=== PATIENT | male | born 1945 | race Caucasian/White ===

== ENCOUNTER 2021-08-04 11:02 | Day surgery (SDC) | payer MEDICARE, BC, SELFPAY ==
[2021-08-04 12:10] VITALS: BP 110/62; PULSE 70; RESP 16; TEMP 36.4; O2SAT 99
[2021-08-04] MEDS: Tropicam./Phenyleph. (1/2.5%) 5 ML BTL OS ×3 (12:22→12:32)
--- NOTE | 2021-08-04 12:45 | ANES.PREOP_ITS ---
General Info Date of Service Date Performed: 08/04/21 Height: 5 ft 9 in Weight: 71.8 kg Body Mass Index (BMI): 23.3 Surgical Procedure: Operation Date: 08/04/21 14:40 Proposed Procedures Side Surgeon p Cataract Extraction with IOL Implant Left Colin River MD Meds Allergies and Home Medications Allergies Allergy/AdvReac Type Severity Reaction Status Date / Time adhesive Allergy Mild Skin Rash Verified 08/04/21 12:03 latex Allergy Mild Skin Rash Verified 08/04/21 12:03 doxycycline Allergy Verified 08/04/21 12:03 isosorbide Allergy Nausea Verified 08/04/21 12:03 lisinopril Allergy Verified 08/04/21 12:03 Home Medication Medication Instructions Recorded amiodarone [Pacerone] 200 mg PO DAILY tab-cap NS 08/31/16 atorvastatin 40 mg PO DAILY tab-cap NS 08/31/16 ferrous sulfate 324 mg PO DAILY NS 08/31/16 magnesium oxide 400 mg PO DAILY NS 08/31/16 metoprolol succinate 200 mg PO DAILY tab-cap NS 08/31/16 nitroglycerin [Nitrostat] 0.3 mg SUBLINGUAL ONCE tab-cap NS 08/31/16 pantoprazole 40 mg PO DAILY tab-cap NS 08/31/16 ascorbic acid (vitamin C) 1,000 mg PO DAILY 08/02/21 furosemide 40 mg PO BID 08/02/21 mexiletine 150 mg PO BID 08/02/21 multivitamin 1 tab PO DAILY 08/02/21 spironolactone 12.5 mg PO DAILY 08/02/21 Current Visit Medications: Current Medications Generic Name Dose Route Start Last Admin Trade Name Freq PRN Reason Stop Dose Admin Acetaminophen 1,000 mg 08/04/21 06:00 Acetaminophen 500 Mg Tab PO Q4H PRN PRN Miscellaneous Medication 0 ml 08/04/21 06:00 Prednisolone 1%, Moxifloxacin 0.5%, Nepafenac 0.1% 5ml Btl OS DIRECTED MARCEL Miscellaneous Medication 0 ml 08/04/21 06:00 08/04/21 12:32 Tropicam./Phenyleph. (1/2.5%) 5 Ml Btl OS 1 drp DIRECTED MARCEL Administration Tetracaine HCl 0 ml 08/04/21 06:00 Tetracaine 0.5% 4 Ml Btl OS DIRECTED MARCEL [facility] Medical History Medical History A-fib Bilateral cataracts CAD (coronary artery disease) Cardiac defibrillator in situ CHF (congestive heart failure) HLD (hyperlipidemia) HTN (hypertension) Hx of lower gastrointestinal bleeding Hypercholesteremia Ischemic cardiomyopathy Pacemaker Medtronic Evera MRI XT DR Ventricular tachycardia, sustained monomorphic [place] [facility] [place] impant 12/2015 for rapid [place] Medical History Comments:: Pacemaker/Defibrillator in place Surgical History Surgical History (Updated 08/04/21 @ 12:02 by Maninder Hale) EGD - MAC (09/13/16) Hx of appendectomy Hx of tonsillectomy 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 Tobacco Smoking/Tobacco Use Status: Former Tobacco Use Alcohol Alcohol Intake: never Substance Use Substance use: Never Substance use type: does not use Vital Signs and Lab Results Vital Signs Most Recent Vital Signs in EMR: Most Recent Vital Signs Temp Pulse Resp BP Pulse Ox 36.4 C L 70 16 110/62 99 08/04/21 12:10 08/04/21 12:10 08/04/21 12:10 08/04/21 12:10 08/04/21 12:10 Lab Results Blood Type / Crossmatch: No Data to Display Complete Blood Count: No Data to Display Complete Metabolic Panel: No Data to Display Liver Function Panel: No Data to Display Coagulation Panel: No Data to Display Cardiac Panel: No Data to Display Arterial Blood Gas: No Data to Display Venous Blood Gas: No Data to Display Pancreas Panel: No Data to Display Thyroid Panel: No Data to Display Infectious Disease: No Data to Display Blood Cultures: No Data to Display Toxicology Panel: No Data to Display Imaging and Studies Imaging and Studies Study information below may be from another EMR and interpreted by another provider. Please see original notes in EMR for more complete details. Echocardiogram Summary: [place] [facility] 26%, Moderate to severe MR, Severe TR. New echo was ordered after placement of CAP SEWER-D device. Pulmonary Function Summary: 05[place]17/2020[place] [facility] Spirometry, Mild reduction in diffusion capacity. Normal SpO2. Anesthesia Assessment and Plan Anesthesia History Personal History: No History of Anesthesia Complications Family History: No Family History of Anesthesia Complications Exercise Tolerance Exercise Tolerance: Metabolic Equivalents>4 Pertinent Negatives Pertinent Negatives: No Symptoms of GERD Cardiac & Pulmonary Exam Cardiac Exam: Normal S1/S2 Heart Sounds Pulmonary Exam: Clear Bilateral Breath Sounds Implantable Cardiac Device Does patient have a Pacemaker or an ICD?: Yes Device Gis Mapping Technician:: Colibrí [id number] Reason for Placement:: S/P CABG, Hx VT. Date of Last Device Interrog ation:: May 2021. Airway Exam Known Difficult Airway: No Mallampati Class: 1 Mouth Opening: Normal (> 3cm) Thyromental Distance: Greater than 3 cm Neck Range of Motion: Full ROM Neck Circumference: Normal Teeth Condition: Removable Dentures/Plates Upper and Removable Dentures/Plates Lower ASA Classification ASA Score: ASA 3 Emergency Case?: No NPO Status NPO Status: NPO Clears >2 hours, Solids >8 hours Anesthesia Plan Resuscitation Status: Full Code Anesthesia Technique: MAC Anesthesia Airway Planned: Natural Airway Monitors Used: Standard Monitors
[2021-08-04 12:49] VITALS: BMI 23.3
[2021-08-04] MEDS: Tetracaine 0.5% 4 ML BTL OS (13:32)
[2021-08-04] MEDS: Balanced Salt Soln.-PLUS 500 ML BAG (13:33)
[2021-08-04] MEDS: Duovisc Viscoelastic System EACH 1 EACH (13:33)
[2021-08-04] MEDS: Lidocaine 2% Jelly 6 ML SYR (13:34)
[2021-08-04] MEDS: Povidone-Iodine Ophth 30 ML BTL (13:36)
[2021-08-04 13:50] VITALS: BP 123/70; PULSE 72; RESP 18; TEMP 36.8; O2SAT 99
--- NOTE | 2021-08-04 13:50 | PDOC.DSDIS_ITS ---
Discharge Plan Disposition Patient Disposition: HOME Condition: Good Discharge Details Attending Provider: Colin River Primary Care Provider: Elizabeth Vieira [place] Meds and New Rx's Prescriptions: No Action atorvastatin 40 MG tablet 40 mg PO DAILY RF: 0 nitroglycerin [Nitrostat] 0.3 MG tablet, sublingual 0.3 mg Sublingual ONCE RF: 0 pantoprazole 40 MG tablet,delayed release (DR/EC) 40 mg PO DAILY RF: 0 amiodarone [Pacerone] 200 MG tablet 200 mg PO DAILY RF: 0 metoprolol succinate 200 MG tablet extended release 24 hr 200 mg PO DAILY RF: 0 magnesium oxide 400 MG tablet 400 mg PO DAILY RF: 0 ferrous sulfate 324 MG tablet,delayed release (DR/EC) 324 mg PO DAILY RF: 0 multivitamin Tablet 1 tab PO DAILY RF: 0 furosemide 40 mg Tablet 40 mg PO BID RF: 0 ascorbic acid (vitamin C) 1,000 mg Tablet 1,000 mg PO DAILY RF: 0 spironolactone 25 mg Tablet 12.5 mg PO DAILY RF: 0 mexiletine 150 mg Capsule 150 mg PO BID RF: 0 Discharge Instructions Stand Alone Forms: Post-op Topical Cataract, Abimbola Connell (DSU) Discharge Orders Discharge Orders: Discharge Order (Routine); Ordered 08/04/21 Ordered By: Colin River DS: Diagnosis Discharge Diagnosis (1) Cortical cataract of left eye: Status: Resolved (2) Nuclear sclerotic cataract of left eye: Status: Resolved
--- NOTE | 2021-08-04 13:52 | ROE_ITS ---
Date of service: 08/04/21 Time of Service: 13:52 Operative Note Operative Note DATE OF PROCEDURE: 08/04/21 PRE-OP DIAGNOSIS: Nuclear/cortical cataract, left eye POST-OP DIAGNOSIS: same PROCEDURE: Cataract extraction using phacoemulsification with intraocular lens implant, left eye SURGEON: Colin River ANESTHESIA TYPE: Local By Surgeon and MAC Refer to Anesthesia Record PATHOLOGY: none sent COMPLICATIONS: None Patient was transported to: same day Patient's condition: stable Implants: Dann and Dann / [employer] Tecnis [id number] Indications: Progressive decreased vision due to cataract, left eye Procedure Description: CATARACT SURGERY OPERATIVE REPORT PREOPERATIVE DIAGNOSIS: 1. Nuclear/cortical cataract, left eye POSTOPERATIVE DIAGNOSIS: Same OPERATION: 1. Cataract extraction using phacoemulsification with posterior chamber intraocular lens implant, left eye. IOL: IOL Laundry Machine Mechanic/Model: Dann & Dann / DESTINEY Tecnis [id number] IOL Power: + 22.0 diopters IOL Serial Number: [id number] Optic Diameter: 6.0 mm Haptic/Overall Diameter: 13.0 mm PHACO INFO: Jake SABIAurion Vision System with OZil and Active Fluidics Cumulative Dispersed Energy (CDE): 19.89 seconds SURGEON: Colin River MD, JAVY ANESTHESIA: Monitored A [facility] (MAC), with local sub-tenon's anesthetic infiltration COMPLICATIONS: None SPECIMENS: None INDICATIONS FOR PROCEDURE: The patient is a 76-year-old gentleman with history of diminished visual acuity in his left eye secondary to development of significant nuclear and cortical cataract. The option of cataract surgery was offered to the patient and he felt he was symptomatic enough that he wished to proceed. PROCEDURE: The correct surgical eye was identified and marked as the left eye and the pupil was dilated in the preoperative area using mydriatics and cycloplegics. The dilated pupil size was 5.5 mm. He elected to proceed without oral sedation. The patient was brought to the operating room where cardiopulmonary monitoring was instituted and surgical time-out was performed, confirming the correct operative eye and IOL power. Topical anesthesia was administered and ophthalmic povidone-iodine 5% was instilled into the conjunctival fornices. Lidocaine gel was applied to the cornea and the carolina-ocular area was prepped with Betadine 10% solution and draped in the usual sterile fashion for intraocular surgery, including an aperture drape. A Tegaderm transparent film dressing was cut in half and used to cover the lashes and lid margins. Care was taken to sequester the lashes and lid margins under the Tegaderm dressing. A lid speculum was placed between the lids of the operative eye and the Devon-Edison operating microscope was maneuvered into position. Glenna scissors were then used to make a conjunctival buttonhole approximately 6mm posterior to the limbus in the inferonasal quadrant. Blunt dissection was carried out to expose bare sclera, and a blunt-tipped sub-tenon?s anesthesia cannula was introduced and passed posteriorly along the globe where non- preserved plain lidocaine was injected into posterior sub-Tenon?s space. A sideport knife was used to make a paracentesis port superiorly/superiorte mporally. Intraocular phenylephrine/lidocaine was injected int the anterior chamber.. The anterior chamber was filled with viscoelastic. A 2.4mm keratome knife was used to create a half-thickness groove at the limbus and then to construct a three-plane near-clear corneal tunnel extending 2.0mm into clear cornea at the 3:00 position. A flap was raised on the anterior capsule and capsulorhexis forceps were used to complete a continuous curvilinear capsulorhexis of 5.5 mm. Balanced salt solution was then used to perform cortical cleaving hydrodissection and nuclear hydrodelineation until the lens could be freely rotated within the capsular bag. The lens nucleus was then disassembled and removed within the capsular bag and iris plane using phacoemulsification. Residual cortical material was removed using the 45-degree angled silicone I/A tip with 0.3mm port. The posterior capsule was carefully polished to remove as much residual lens epithelial cells as safely possible. The capsular bag was then inflated and the anterior chamber deepened with viscoelastic. The lens implant described above was inserted into the capsular bag using the DESTINEY [place] Injector. A Kuglen hook was used to dial the IOL into position. Residual viscoelastic was then removed first from posterior to the IOL, then from the anterior chamber using the I/A handpiece. The lens implant was noted to center nicely within the capsular bag. The incisions were stromally hydrated, and the anterior chamber was reformed using BSS. Then 0.5cc of moxifloxacin 1.0mg/ml were injected into the capsular bag and anterior chamber. The incisions were checked with a Weck spear and found to be secure. Several drops of ophthalmic povidone-iodine 5% were then applied to the eye followed by two drops of Imprimis combination prednisolone/moxifloxacin/nepafenac solution. The drapes were removed and a clear plastic protective eye shield was placed over the eye. The patient was then returned to Same Day Surgery in stable condition.
--- NOTE | 2021-08-04 14:19 | W.ANESPOSTOP ---
Postoperative Evaluation Date, Time and Location Date Performed: 08/04/21 Time Performed: 13:55 Patient Location: Day Surgery Unit Vital Signs Most Recent Imported Vital Signs: Most Recent Vital Signs Temp Pulse Resp BP Pulse Ox 36.8 C 72 18 123/70 99 08/04/21 13:50 08/04/21 13:50 08/04/21 13:50 08/04/21 13:50 08/04/21 13:50 Pain Score Most Recent Pain Score: Most Recent Pain Score Pain Level 0 08/04/21 13:50 Assessment Mental Status: Awake (Alert & Oriented to Patient Baseline) Airway and Respiratory Function: Patent airway with normal (patient baseline) respiratory exam Cardiovascular Function: Hemodynamically Stable Hydration Status: Adequately Hydrated Nausea & Vomiting: No Nausea or Vomiting Pain: Pt. Denies Any Pain Peripheral Nerve Block: Patient did not receive a nerve block
== END 2021-08-04 14:16 | disposition home or self-care (01) ==
PROVIDERS: PCP Nurse Practitioner; Visit Provider Ophthalmology
PROC: (CPT 66984; principal; 2021-08-04 14:30)
DX: H25.12 Age-related nuclear cataract, left eye (principal); I48.91 Unspecified atrial fibrillation; Z95.0 Presence of cardiac pacemaker; I10 Essential (primary) hypertension; E78.5 Hyperlipidemia, unspecified; I25.10 Atherosclerotic heart disease of native coronary artery without angina pectoris
CPT/HCPCS: 66984; V2632

== ENCOUNTER 2021-08-11 00:56 | Outpatient (CLI) | payer MEDICARE, BC, SELFPAY ==
[2021-08-11 10:59] LABS: Source Nasal/Nares
[2021-08-11 19:09] LABS: COVID-19 PCR Negative (Negative)
== END 2021-08-11 00:57 | disposition home or self-care (01) ==
PROVIDERS: PCP Nurse Practitioner; Visit Provider Ophthalmology
DX: Z20.822 Contact with and (suspected) exposure to COVID-19 (principal); Z01.818 Encounter for other preprocedural examination
CPT/HCPCS: 87635

== ENCOUNTER 2021-08-14 08:16 | Day surgery (SDC) | payer MEDICARE, BC, SELFPAY ==
--- NOTE | 2021-08-14 08:23 | W.ANESPRE ---
General Info Date of Service Date Performed: 08/14/21 Height: 5 ft 9 in Weight: 71.8 kg Body Mass Index (BMI): 23.3 Surgical Procedure: Operation Date: 08/14/21 10:40 Proposed Procedures Side Surgeon p Cataract Extraction with IOL Implant Right Colin River MD Meds Allergies and Home Medications Allergies Allergy/AdvReac Type Severity Reaction Status Date / Time adhesive Allergy Mild Skin Rash Verified 08/14/21 08:39 latex Allergy Mild Skin Rash Verified 08/14/21 08:39 doxycycline Allergy Verified 08/14/21 08:39 isosorbide Allergy Nausea Verified 08/14/21 08:39 lisinopril Allergy Verified 08/14/21 08:39 Home Medication Medication Instructions Recorded amiodarone [Pacerone] 200 mg PO DAILY tab-cap NS 08/31/16 atorvastatin 40 mg PO DAILY tab-cap NS 08/31/16 ferrous sulfate 324 mg PO DAILY NS 08/31/16 magnesium oxide 400 mg PO DAILY NS 08/31/16 metoprolol succinate 200 mg PO DAILY tab-cap NS 08/31/16 nitroglycerin [Nitrostat] 0.3 mg SUBLINGUAL ONCE tab-cap NS 08/31/16 pantoprazole 40 mg PO DAILY tab-cap NS 08/31/16 ascorbic acid (vitamin C) 1,000 mg PO DAILY 08/02/21 furosemide 40 mg PO BID 08/02/21 mexiletine 150 mg PO BID 08/02/21 multivitamin 1 tab PO DAILY 08/02/21 spironolactone 12.5 mg PO DAILY 08/02/21 Current Visit Medications: Current Medications Generic Name Dose Route Start Last Admin Trade Name Freq PRN Reason Stop Dose Admin Acetaminophen 1,000 mg 08/14/21 06:00 Acetaminophen 500 Mg Tab PO Q4H PRN PRN Miscellaneous Medication 0 ml 08/14/21 06:00 Prednisolone 1%, Moxifloxacin 0.5%, Nepafenac 0.1% 5ml Btl OD DIRECTED [facility] Miscellaneous Medication 0 ml 08/14/21 06:00 Tropicam./Phenyleph. (1/2.5%) 5 Ml Btl OD DIRECTED [facility] Tetracaine HCl 0 ml 08/14/21 06:00 Tetracaine 0.5% 4 Ml Btl OD DIRECTED [facility] Active Problems Active Problems: Problem Status Onset Code Nuclear sclerotic cataract of right eye H25.11 Cortical cataract of right eye H26.9 Nuclear sclerotic cataract of left eye H25.12 Cortical cataract of left eye H26.9 Medical History Medical History A-fib Bilateral cataracts CAD (coronary artery disease) Cardiac defibrillator in situ CHF (congestive heart failure) HLD (hyperlipidemia) HTN (hypertension) Hx of lower gastrointestinal bleeding Hypercholesteremia Ischemic cardiomyopathy Pacemaker Medtronic Evera MRI XT Ventricular tachycardia, sustained monomorphic per [facility] [place] [place]- ICD impant 12/2015 for rapid [place] Medical History Comments:: Pacemaker/Defibrillator in place Surgical History Surgical History (Updated 08/14/21 @ 08:39 by Melida Dennison) EGD - MAC (09/13/16) Hx of appendectomy Hx of cataract surgery Hx of tonsillectomy 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 Tobacco Smoking/Tobacco Use Status: Former Tobacco Use Alcohol Alcohol Intake: never Substance Use Substance use: Never Substance use type: does not use Vital Signs and Lab Results Manually Entered Vital Signs Most Recent Manually Entered Vital Signs: Adult Blood Pressure: 108/65 Heart Rate: 83 Respirations: 16 Oxygen Saturation (%): 97 Temperature (C): 36.6 C Pain Score (0-10 Scale): 0 Lab Results Blood Type / Crossmatch: No Data to Display Complete Blood Count: No Data to Display Complete Metabolic Panel: No Data to Display Liver Function Panel: No Data to Display Coagulation Panel: No Data to Display Cardiac Panel: No Data to Display Arterial Blood Gas: No Data to Display Venous Blood Gas: No Data to Display Pancreas Panel: No Data to Display Thyroid Panel: No Data to Display Infectious Disease: Coronavirus (COVID-19)(PCR) Negative (Negative) 08/11/21 08:41 08/11/21 Coronavirus 2019 Source Nasal/Nares 08/11/21 08:41 08/11/21 Blood Cultures: No Data to Display Toxicology Panel: No Data to Display Imaging and Studies Imaging and Studies Study information below may be from another EMR and interpreted by another provider. Please see original notes in EMR for more complete details. Echocardiogram Summary: 11/16/19: [facility]: EF 26%, Moderate to severe MR, Severe TR. New echo was ordered after placement of WELL BLOWER-D device. Pulmonary Function Summary: 05/17/2020: [facility]: Normal Spirometry, Mild reduction in diffusion capacity. Normal SpO2. Anesthesia Assessment and Plan Anesthesia History Personal History: No History of Anesthesia Complications Family History: No Family History of Anesthesia Complications Exercise Tolerance Exercise Tolerance: Metabolic Equivalents>4 Pertinent Negatives Pertinent Negatives: No Symptoms of GERD Cardiac & Pulmonary Exam Cardiac Exam: Normal S1/S2 Heart Sounds Pulmonary Exam: Clear Bilateral Breath Sounds Implantable Cardiac Device Does patient have a Pacemaker or an ICD?: Yes Device Banana Carrier:: Medtronic ICD Evera dual chamber Reason for Placement:: Rapid [place] Date of Last Device Interrogation:: 05/17/21 Airway Exam Known Difficult Airway: No Mallampati Class: 1 Mouth Opening: Normal (> 3cm) Thyromental Distance: Greater than 3 cm Neck Range of Motion: Full ROM Neck Circumference: Normal Teeth Condition: Removable Dentures/Plates Upper and Removable Dentures/Plates Lower ASA Classification ASA Score: ASA 3 Emergency Case?: No NPO Status NPO Status: NPO Clears >2 hours, Solids >8 hours Anesthesia Plan Resuscitation Status: Full Code Anesthesia Technique: MAC Anesthesia Airway Planned: Natural Airway Monitors Used: Standard Monitors
[2021-08-14] MEDS: Tropicam./Phenyleph. (1/2.5%) 5 ML BTL OD ×3 (08:40→08:52)
[2021-08-14 08:47] VITALS: BP 108/65; PULSE 83; RESP 16; TEMP 36.6; O2SAT 97
[2021-08-14 09:25] VITALS: BP 108/65; PULSE 83; RESP 16; TEMPC 36.6; O2SAT 97; BMI 23.3
[2021-08-14] MEDS: Tetracaine 0.5% 4 ML BTL OD (09:44)
[2021-08-14] MEDS: Balanced Salt Soln.-PLUS 500 ML BAG (09:45)
[2021-08-14] MEDS: Duovisc Viscoelastic System EACH 1 EACH (09:45)
[2021-08-14] MEDS: Lidocaine 2% Jelly 6 ML SYR (09:46)
[2021-08-14] MEDS: Povidone-Iodine Ophth 30 ML BTL (09:47)
[2021-08-14 10:07] VITALS: BP 112/64; PULSE 70; RESP 16; TEMP 36.5; O2SAT 97
--- NOTE | 2021-08-14 10:10 | W.PM.DSUDISC ---
Discharge Plan Disposition Patient Disposition: HOME Condition: Good Discharge Details Attending Provider: Colin River Primary Care Provider: Elizabeth Vieira [place] Meds and New Rx's Prescriptions: No Action atorvastatin 40 MG tablet 40 mg PO DAILY RF: 0 nitroglycerin [Nitrostat] 0.3 MG tablet, sublingual 0.3 mg Sublingual ONCE RF: 0 pantoprazole 40 MG tablet,delayed release (DR/EC) 40 mg PO DAILY RF: 0 amiodarone [Pacerone] 200 MG tablet 200 mg PO DAILY RF: 0 metoprolol succinate 200 MG tablet extended release 24 hr 200 mg PO DAILY RF: 0 magnesium oxide 400 MG tablet 400 mg PO DAILY RF: 0 ferrous sulfate 324 MG tablet,delayed release (DR/EC) 324 mg PO DAILY RF: 0 multivitamin Tablet 1 tab PO DAILY RF: 0 furosemide 40 mg Tablet 40 mg PO BID RF: 0 ascorbic acid (vitamin C) 1,000 mg Tablet 1,000 mg PO DAILY RF: 0 spironolactone 25 mg Tablet 12.5 mg PO DAILY RF: 0 mexiletine 150 mg Capsule 150 mg PO BID RF: 0 Discharge Instructions Stand Alone Forms: Post-op Topical Cataract, Abimbola Connell (DSU) Discharge Orders Discharge Orders: Discharge Order (Routine); Ordered 08/14/21 Ordered By: Colin River DS: Diagnosis Discharge Diagnosis (1) Cortical cataract of right eye: Status: Resolved (2) Nuclear sclerotic cataract of right eye: Status: Resolved
--- NOTE | 2021-08-14 10:11 | ROE_ITS ---
Date of service: 08/14/21 Time of Service: 10:11 Operative Note Operative Note DATE OF PROCEDURE: 08/14/21 PRE-OP DIAGNOSIS: Nuclear/cortical cataract, right eye POST-OP DIAGNOSIS: same PROCEDURE: Cataract extraction using phacoemulsification with intraocular lens implant, right eye SURGEON: Colin River ANESTHESIA TYPE: Local By Surgeon and MAC Refer to Anesthesia Record ESTIMATED BLOOD LOSS: 0 PATHOLOGY: none sent COMPLICATIONS: None Patient was transported to: same day Patient's condition: stable Implants: [employer]ann/DESTINEY Tecnis [id number] Indications: Progressive visual loss due to cataract, right eye Procedure Description: CATARACT SURGERY OPERATIVE REPORT PREOPERATIVE DIAGNOSIS: 1. Nuclear/cortical cataract, right eye POSTOPERATIVE DIAGNOSIS: Same OPERATION: 1. Cataract extraction using phacoemulsification with posterior chamber intraocular lens implant, right eye. 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 He has already undergone cataract surgery in the left eye and is doing well postoperatively. He now presents for cataract surgery in the right eye. PROCEDURE: The correct surgical eye was identified and marked as the right eye and the pupil was dilated in the preoperative area using mydriatics and cycloplegics. The dilated pupil size was 6.0 mm. He elected to proceed without oral sedation. The patient was brought to the operating room where cardiopulmonary monitoring was instituted and surgical time-out was performed, confirming the correct operative eye and IOL power. Topical anesthesia was administered and ophthalmic povidone-iodine 5% was instilled into the conjunctival fornices. Lidocaine gel was applied to the cornea and the carolina-ocular area was prepped with Betadine 10% solution and draped in the usual sterile fashion for intraocular surgery, including an aperture drape. A Tegaderm transparent film dressing was cut in half and used to cover the lashes and lid margins. Care was taken to sequester the lashes and lid margins under the Tegaderm dressing. A lid speculum was placed between the lids of the operative eye and the [employer] operating microscope was maneuvered into position. Glenna scissors were then used to make a conjunctival buttonhole approximately 6mm posterior to the limbus in the inferonasal quadrant. Blunt dissection was carried out to expose bare sclera, and a blunt-tipped sub-tenon?s anesthesia cannula was introduced and passed posteriorly along the globe where non- preserved plain lidocaine was injected into posterior sub-Tenon?s space. A sideport knife was used to make a paracentesis port inferotemporally. Intraocular phenylephrine/lidocaine was injected into the anterior chamber. The anterior chamber was filled with viscoelastic. A 2.4mm keratome knife was used to create a half-thickness groove at the limbus and then to construct a three- plane near-clear corneal tunnel extending 2.0mm into clear cornea superiortemporally. A flap was raised on the anterior capsule and capsulorhexis forceps were used to complete a continuous curvilinear capsulorhexis of 5.0 mm. Balanced salt solution was then used to perform cortical cleaving hydrodissection and nuclear hydrodelineation until the lens could be freely rotated within the capsular bag. The lens nucleus was then disassembled and removed within the capsular bag and iris plane using phacoemulsification. Residual cortical material was removed using the I/A handpiece. The posterior capsule was carefully polished to remove as much residual lens epithelial cells as safely possible. The capsular bag was then inflated and the anterior chamber deepened with viscoelastic. The lens implant described above was inserted into the capsular bag using the [employer] [place] Injector. A Kuglen hook was used to dial the IOL into position. Residual viscoelastic was then removed first from posterior to the IOL, then from the anterior chamber using the I/A handpiece. The lens implant was noted to center nicely within the capsular bag. The incisions were stromally hydrated, and the anterior chamber was reformed using BSS. Then 0.5cc of moxifloxacin 1.0mg/ml were injected into the capsular bag and anterior chamber. The incisions were checked with a Weck spear and found to be secure. Several drops of ophthalmic povidone-iodine 5% were then applied to the eye followed by two drops of Imprimis combination prednisolone/moxifloxacin/nepafenac solution. The drapes were removed and a clear plastic protective eye shield was placed over the eye. The patient was then returned to [facility] in stable condition.
--- NOTE | 2021-08-14 10:13 | W.ANESPOSTOP ---
Postoperative Evaluation Date, Time and Location Date Performed: 08/14/21 Time Performed: :13 Patient Location: Day Surgery Unit Vital Signs Most Recent Imported Vital Signs: Most Recent Vital Signs Temp Pulse Resp BP Pulse Ox 36.5 C 70 16 112/64 97 08/14/21 10:07 08/14/21 10:07 08/14/21 10:07 08/14/21 10:07 08/14/21 10:07 Pain Score Most Recent Pain Score: Most Recent Pain Score Pain Level 0 08/14/21 10:07 Assessment Mental Status: Awake (Alert & Oriented to Patient Baseline) Airway and Respiratory Function: Patent airway with normal (patient baseline) respiratory exam Cardiovascular Function: Hemodynamically Stable Hydration Status: Adequately Hydrated Nausea & Vomiting: No Nausea or Vomiting Pain: Pt. Denies Any Pain Peripheral Nerve Block: Patient did not receive a nerve block
== END 2021-08-14 10:27 | disposition home or self-care (01) ==
PROVIDERS: PCP Nurse Practitioner; Visit Provider Ophthalmology
PROC: (CPT 66984; principal; 2021-08-14 10:30)
DX: H25.11 Age-related nuclear cataract, right eye (principal); I11.0 Hypertensive heart disease with heart failure; I50.9 Heart failure, unspecified; I48.91 Unspecified atrial fibrillation
CPT/HCPCS: 66984; V2632